=== PATIENT | female | born 1935 | race Caucasian/White ===

== ENCOUNTER 2020-12-16 10:08 | Emergency (ER) | payer MEDICARE ==
[~2020-12-16] VITALS: Ht 165.1 cm; Wt 66.3 kg
[2020-12-16] MEDS ORDERED: hydrALAZINE (APESOLINE) 20 MG/ML VIAL IV STA (10:28)
[2020-12-16] MEDS ORDERED: NS IV 1000 ML 1,000 ML IV STA (10:28)
[2020-12-16 10:45] LABS: BASOPHILS % (AUTO) 0 % (0-10); EOSINOPHILS # (AUTO) 0.2 10^3/uL (0.0-0.3); EOSINOPHILS % (AUTO) 2 % (0-10); HEMATOCRIT 40 % (35-52); HEMOGLOBIN 12.7 g/dL (11.5-16.0); LYMPHOCYTES # (AUTO) 0.9 X 10^3 (1.0-4.0); LYMPHOCYTES % (AUTO) 13 % (12-44); MEAN CORPUSCULAR HEMOGLOBIN 31 pg (25-34); MEAN CORPUSCULAR HGB CONC 32 g/dL (32-36); MEAN CORPUSCULAR VOLUME 97 fL (80-99); MONOCYTES # (AUTO) 0.5 X 10^3 (0.0-1.0); MONOCYTES % (AUTO) 7 % (0-12); NEUTROPHILS # (AUTO) 5.6 X 10^3 (1.8-7.8); NEUTROPHILS % (AUTO) 78 % (42-75); PLATELET COUNT 210 10^3/uL (130-400); WHITE BLOOD COUNT 7.3 10^3/uL (4.3-11.0)
--- NOTE | 2020-12-16 10:45 | ED General ---
General Chief Complaint: General Problems/Pain Stated Complaint: JONAS HAND TINGLING/TWITCHING Source of Information: Patient, Family History of Present Illness Date Seen by Provider: Dec 16, 2020 Time Seen by Provider: 10:11 Initial Comments 85-year-old female presenting with complaints of generalized headache, bilateral hand tingling, intermittent twitching or jerking movements of the extremities. She states that she was in town visiting to attend a football game. She had been excited about getting outside of the house and visiting with friends and family. She does have hypertension and has had similar episodes in the past with elevated blood pressure. She has a as needed clonidine that she takes if her blood pressure is high. She did take her regular medications and the extra clonidine this morning. The clonidine was around 9 or 930. She was still hav ing symptoms and rather than drive to home she wanted to be seen and evaluated first. She denies any blurred vision or change in her vision, chest pain, shortness of breath, abdominal pain, nausea, vomiting, diarrhea, pain with urination. She does report that she is anxious and a worrier. Timing/Duration: 12 Hours Associated Systoms: No Chest Pain, No Cough, No Diaphoresis, No Fever/Chills; Headaches; No Loss of Appetite, No Malaise, No Nausea/Vomiting, No Rash, No Seizure, No Shortness of Air, No Syncope, No Weakness Allergies and Home Medications Allergies Coded Allergies: No Known Drug Allergies (Unverified , 12/16/20) Patient Home Medication List Home Medication List Reviewed: Yes Review of Systems Review of Systems Constitutional: No chills, No fever EENTM: no symptoms reported Respiratory: no symptoms reported Cardiovascular: no symptoms reported Gastrointestinal: no symptoms reported Genitourinary: no symptoms reported Musculoskeletal: no symptoms reported Skin: No rash Psychiatric/Neurological: Headache, Tingling (Bilateral hands); Denies Weakness; Other (Intermittent shaking or jerking movements of her extremities) Hematologic/Lymphatic: Denies Blood Clots Past Phxxwyr-[id number] Hx Patient Social History Tobacco Use?: No Alcohol Use?: Yes Alcohol type: Beer Alcohol Frequency: Once in a while Past Medical History Cardiac: Yes High Cholesterol, Hypertension Physical Exam Vital Signs Vital Signs - First Documented 12/16/20 10:15 Temp 35.7 Pulse 72 Resp 16 B/P (MAP) 176/82 (113) Pulse Ox 100 O2 Delivery Room Air Capillary Refill : Height, Weight, BMI Height: '" Weight: lbs. oz. kg; BMI Method: General Appearance: No Apparent Distress, WD/WN HEENT: PERRL/EOMI, Pharynx Normal Neck: Full Range of Motion, Normal Inspection, Non Tender, Supple Respiratory: Chest Non Tender, Lungs Clear, Normal Breath Sounds, No Accessory Muscle Use, No Respiratory Distress Cardiovascular: Regular Rate, Rhythm, Normal Peripheral Pulses Gastrointestinal: Normal Bowel Sounds, No Pulsatile Mass, Non Tender, Soft Rectal: Deferred Extremity: Normal Capillary Refill, Normal Inspection, Normal Range of Motion, No Pedal Edema Neurologic/Psychiatric: Alert, Oriented x3, fine grader II-XII Norm as Tested, Other (anxious. Equal anesthesiologist assistant certified strength. complaint of tingling in both hands not specific to a dermatome) Skin: Normal Color, Warm/Dry; No Rash Progress/Results/Core Measures Suspected Sepsis SIRS Temperature: Pulse: Respiratory Rate: Laboratory Tests 12/16/20 10:35: White Blood Count 7.3 Blood Pressure / Mean: Laboratory Tests 12/16/20 10:35: Creatinine 1.23, INR Comment 1.0, Platelet Count 210, Total Bilirubin 0.4 Results/Orders Lab Results Laboratory Tests Test 12/16/20 10:35 12/16/20 11:00 Range/Units White Blood Count 7.3 4.3-11.0 10^3/uL Red Blood Count 4.09 3.80-5.11 10^6/uL Hemoglobin 12.7 11.5-16.0 g/dL Hematocrit 40 35-52 % Mean Corpuscular Volume 97 80-99 fL Mean Corpuscular Hemoglobin 31 25-34 pg Mean Corpuscular Hemoglobin Concent 32 32-36 g/dL Red Cell Distribution Width 12.0 10.0-14.5 % Platelet Count 210 130-400 10^3/uL Mean Platelet Volume 10.0 9.0-12.2 fL Immature Granulocyte % (Auto) 0 % Neutrophils (%) (Auto) 78 H 42-75 % Lymphocytes (%) (Auto) 13 12-44 % Monocytes (%) (Auto) 7 0-12 % Eosinophils (%) (Auto) 2 0-10 % Basophils (%) (Auto) 0 0-10 % Neutrophils # (Auto) 5.6 1.8-7.8 X 10^3 Lymphocytes # (Auto) 0.9 L 1.0-4.0 X 10^3 Monocytes # (Auto) 0.5 0.0-1.0 X 10^3 Eosinophils # (Auto) 0.2 0.0-0.3 10^3/uL Basophils # (Auto) 0.0 0.0-0.1 10^3/uL Immature Granulocyte # (Auto) 0.0 0.0-0.1 10^3/uL Prothrombin Time 13.6 12.2-14.7 SEC INR Comment 1.0 0.8-1.4 Activated Partial Thromboplast Time 27 24-35 SEC Sodium Level 143 135-145 MMOL/L Potassium Level 3.8 3.6-5.0 MMOL/L Chloride Level 105 98-107 MMOL/L Carbon Dioxide Level 26 21-32 MMOL/L Anion Gap 12 5-14 MMOL/L Blood Urea Nitrogen 27 H 7-18 MG/DL Creatinine 1.23 0.60-1.30 MG/DL Estimat Glomerular Filtration Rate 42 BUN/Creatinine Ratio 22 Glucose Level 112 H 70-105 MG/DL Calcium Level 9.1 8.5-10.1 MG/DL Corrected Calcium 8.7 8.5-10.1 MG/DL Magnesium Level 1.9 1.6-2.4 MG/DL Total Bilirubin 0.4 0.1-1.0 MG/DL Aspartate Amino Transf (AST/SGOT) 19 5-34 U/L Alanine Aminotransferase (ALT/SGPT) 17 0-55 U/L Alkaline Phosphatase 93 40-136 U/L Troponin I < 0.30 <0.30 NG/ML Pro-B-Type Natriuretic Peptide 722.1 H <75.0 PG/ML Total Protein 6.9 6.4-8.2 GM/DL Albumin 4.5 3.2-4.5 GM/DL Urine Color YELLOW Urine Clarity CLEAR Urine pH 6.0 5-9 Urine Specific Kenneth 1.015 L 1.016-1.022 Urine Protein NEGATIVE NEGATIVE Urine Glucose (UA) NEGATIVE NEGATIVE Urine Ketones NEGATIVE NEGATIVE Urine Nitrite NEGATIVE NEGATIVE Urine Bilirubin NEGATIVE NEGATIVE Urine Urobilinogen 0.2 < = 1.0 MG/DL Urine Leukocyte Esterase NEGATIVE NEGATIVE Urine RBC (Auto) NEGATIVE NEGATIVE Urine RBC NONE /HPF Urine WBC NONE /HPF Urine Squamous Epithelial Cells 5-10 /HPF Urine Crystals NONE /LPF Urine Bacteria NEGATIVE /HPF Urine Casts PRESENT /LPF Urine Hyaline Casts 2-5 H /LPF Urine Mucus SMALL H /LPF Urine Culture Indicated NO My Orders Orders - ANABEL ESTRADA MD Cbc With Automated Diff (12/16/20 10:28) Magnesium (12/16/20 10:28) Ekg Tracing (12/16/20 10:) Comprehensive Metabolic Panel (12/16/20 10:) Protime With Inr (12/16/20 10:) Partial Thromboplastin Time (12/16/20 10:28) O2 (12/16/20 10:28) Monitor-Rhythm Ecg Trace Only (12/16/20 10:) Ed Iv/Invasive Line Start (12/16/20:) Troponin I Fs (12/16/20 10:28) Probnp Fs (12/16/20 10:) Ua Culture If Indicated (12/16/20 10:) Ct Head Wo (12/16/20 10:28) Hydralazine Injection (Apresoline Inject (12/16/20 10:28) Ns Iv 1000 Ml (Sodium Chloride 0.9%) (12/16/20 10:28) Vital Signs/I&O 12/16/20 12/16/20 10:15 12:03 Temp 35.7 Pulse 72 70 Resp 16 17 B/P (MAP) 176/82 (113) 142/60 Pulse Ox 100 O2 Delivery Room Air Room Air Capillary Refill : Progress Note #1: Progress Note Check basic labs as well as cardiac enzymes and a CT scan of her head. Try an additional dose of medicine for her blood pressure by giving a dose of hydralazine 10 mg IV. This all may be related to the fact that she did not sleep all night and was anxious and worried. Differential diagnosis includes hypertensive urgency, stroke, TIA, myocardial infarction, UTI, electrolyte imbalance Progress Note #2: Time: 11:23 Progress Note Labs are benign without acute findings to explain her symptoms. Her BUN and Cr are slightly elevated so she might be slightly dry. CT head did not show acute findings to account for her symptoms. She has no acute ischemic changes on ECG. Progress Note #3: Time: 11:44 Progress Note UA does not show infection or proteinuria. BP improved. Will have pt make sure she is drinking plenty of fluids and staying hydrated. Check back with pcp. ECG Initial ECG Impression Date: Dec 16, 2020 Initial ECG Impression Time: 10:33 Initial ECG Rate: 61 Initial ECG Rhythm: Normal Sinus Initial ECG Comparisson: No Previous ECG Available Comment Normal sinus rhythm with a heart rate of 61 bpm. OH interval 159 ms. There is a right bundle branch block. She has no acute ST elevation. She does have Q waves in leads II, III and aVF. Her QT interval is 455 ms with a QTc interval 459 ms. There is no prior tracing available for comparison. Diagnostic Imaging Diagonstic Imaging: CT Plain Films/CT/US/NM/MRI: head Comments NAME: AUDREY VALDERRAMA [facility] REC#: [id number] PT STATUS: REG ER : 1935 PHYSICIAN: ANABEL ESTRADA MD ADMIT DATE: 12/16/20/ER FS Draft Date of Exam:12/16/20 CT HEAD WO PROCEDURE: CT head without contrast. TECHNIQUE: Multiple contiguous axial images were obtained through the brain without the use of intravenous contrast. Auto Exposure Controls were utilized during the CT exam to meet ALARA standards for radiation dose reduction. INDICATION: Headache. COMPARISON: None available. FINDINGS: Mild atrophy. Calcification within the right basal ganglia. No intracranial hemorrhage. No intracranial mass, mass effect, midline shift, herniation, hydrocephalus, or extra-axial fluid collection. Periventricular and subcortical white matter hypodensities are present, most consistent with minimal background chronic small vessel white matter ischemic disease. No definite CT evidence of an acute ischemic infarction. Background vascular calcifications. The bilateral ocular lenses are absent. The paranasal sinuses are clear. The calvarium and extracalvarial soft tissues are unremarkable. IMPRESSION: No acute intracranial abnormality with mild atrophy and minimal background chronic small vessel white matter ischemic disease present. Dictated on workstation # [id number] Dict: 12/16/20 1106 Trans: 12/16/20 1118 [id number] [id number] Interpreted by: DAYANA MOJICA MD Electronically signed by: Reviewed: Reviewed by Me Departure Impression Primary Impression: Hypertensive urgency Additional Impression: Numbness and tingling in both hands Disposition: 01 HOME, SELF-CARE Condition: Improved Departure-Patient Inst. Decision time for Depature: 11:46 Referrals: NO,LOCAL PHYSICIAN (PCP/Family) Primary Care Physician Patient Instructions: Paresthesia (DC), Hand Numbness, High Blood Pressure Emergencies Add. Discharge Instructions: Check back with your regular provider this week about your symptoms and to see if any adjustments need to be made to your blood pressure medicines. Stay well hydrated and get plenty of rest There are no signs of a stroke, heart damage, infection, electrolyte imbalance on your tests to indicate more severe problem for you. This is likely related to your blood pressure and stress and anxiety of travel and excitement of being out of the house. All discharge instructions reviewed with patient and/or family. Voiced understanding. ANABEL ESTRADA MD Dec 16, 2020 10:45
[2020-12-16 11:06] LABS: ALBUMIN 4.5 GM/DL (3.2-4.5); BILIRUBIN,TOTAL 0.4 MG/DL (0.1-1.0); CALCIUM 9.1 MG/DL (8.5-10.1); CREATININE SERUM 1.23 MG/DL (0.60-1.30); MAGNESIUM 1.9 MG/DL (1.6-2.4); POTASSIUM 3.8 MMOL/L (3.6-5.0); TOTAL PROTEIN 6.9 GM/DL (6.4-8.2)
[2020-12-16 11:13] LABS: PROTHROMBIN TIME PATIENT 13.6 SEC (12.2-14.7)
--- NOTE | 2020-12-16 11:19 | Diagnostic Imaging Report ---
PROCEDURE: CT head without contrast. TECHNIQUE: Multiple contiguous axial images were obtained through the brain without the use of intravenous contrast. Auto Exposure Controls were utilized during the CT exam to meet ALARA standards for radiation dose reduction. INDICATION: Headache. COMPARISON: None available. FINDINGS: Mild atrophy. Calcification within the right basal ganglia. No intracranial hemorrhage. No intracranial mass, mass effect, midline shift, herniation, hydrocephalus, or extra-axial fluid collection. Periventricular and subcortical white matter hypodensities are present, most consistent with minimal background chronic small vessel white matter ischemic disease. No definite CT evidence of an acute ischemic infarction. Background vascular calcifications. The bilateral ocular lenses are absent. The paranasal sinuses are clear. The calvarium and extracalvarial soft tissues are unremarkable. IMPRESSION: No acute intracranial abnormality with mild atrophy and minimal background chronic small vessel white matter ischemic disease present. Dictated by: Dictated on workstation # [id number]
[2020-12-16 11:42] LABS: BACTERIA,URINE NEGATIVE /HPF; BILIRUBIN,URINE NEGATIVE (NEGATIVE); CLARITY,URINE CLEAR; COLOR,URINE YELLOW; GLUCOSE, URINE (UA) NEGATIVE (NEGATIVE); KETONES,URINE NEGATIVE (NEGATIVE); LEUKOCYTE ESTERASE ,URINE NEGATIVE (NEGATIVE); NITRITE,URINE NEGATIVE (NEGATIVE); PROTEIN,URINE NEGATIVE (NEGATIVE)
[2020-12-16 12:03] VITALS: BP 142/60
== END 2020-12-16 12:05 | disposition home or self-care (01) ==
LOC: ER FS 10:12
DX: I10 Essential (primary) hypertension (principal); R20.0 Anesthesia of skin; R20.2 Paresthesia of skin
CPT/HCPCS: 36415; 70450; 80053; 81000; 83735; 83880; 84484; 85025; 85610; 85730; 93005; 93041